=== PATIENT | female | born 1990 | race Two or more races ===

== ENCOUNTER 2017-12-19 23:55 | Observation (INO) | payer MEDICAID, SELFPAY ==
[~2017-12-19] VITALS: Ht 157.5 cm; Wt 90.6 kg
[2017-12-20 00:33] LABS: HCG UR SG 1.009 (1.003-1.030); MICROSCOPIC AUTO
[2017-12-20 00:34] LABS: CULTURE INDICATED? NO
[2017-12-20] MEDS ORDERED: MAALOX/HYOSCYAMINE/LIDOCAINE 45 ML BTL PO ONE (01:00)
[2017-12-20] MEDS ORDERED: MAALOX/HYOSCYAMINE/LIDOCAINE 45 ML BTL ONE (01:09)
[2017-12-20 01:35] LABS: BASOPHILS # (AUTO) 0.04 x10^3/uL (0-0.1); BASOPHILS % (AUTO) 0 % (0-1); EOSINOPHILS # (AUTO) 0.22 x10^3/uL (0-0.4); EOSINOPHILS % (AUTO) 2 % (1-7); LYMPHOCYTES % (AUTO) 30 % (22-44); MD NO; MEAN CORPUSCULAR HEMOGLOBIN 30.8 pg (27.0-34.8); MEAN CORPUSCULAR HGB CONC 33.7 g/dL (32.4-35.8); MEAN CORPUSCULAR VOLUME 91.3 fL (80-100); MEAN PLATELET VOLUME 11.7 fL (7.4-10.4); MONOCYTES # (AUTO) 0.71 x10^3/uL (0.2-0.8); MONOCYTES % (AUTO) 8 % (2-9); NEUTROPHILS # (AUTO) 5.48 x10^3/uL (1.8-6.8); NEUTROPHILS % (AUTO) 60 % (42-75); PLATELET COUNT 250 x10^3/uL (130-400); RED BLOOD COUNT 4.43 x10^6/uL (3.82-5.3); RED CELL DISTRIBUTION WIDTH 13.5 % (9.6-15.2)
[2017-12-20 01:46] LABS: ALANINE AMINOTRANSFERASE 81 U/L (12-78); ALBUMIN 3.5 g/dL (3.4-5.0); ANION GAP 8 mmol/L (5-15); CALCIUM 8.1 mg/dL (8.5-10.1); CHLORIDE 107 mmol/L (98-107); CREATININE 0.74 mg/dL (0.55-1.02)
[2017-12-20 01:50] LABS: ALKALINE PHOSPHATASE 100 U/L (45-117); BILIRUBIN,TOTAL 0.2 mg/dL (0.2-1.0); TOTAL PROTEIN 7.3 g/dL (6.4-8.2)
[2017-12-20] MEDS ORDERED: SODIUM CHLORIDE FLUSH 10ML SYR IVF ONE (02:00)
[2017-12-20] MEDS ORDERED: ONDANSETRON 2MG/ML, 2ML IVPush ONE (02:00)
[2017-12-20] MEDS ORDERED: CEFOTETAN PMX 1GM/50ML 50 ML IV ONE (02:00)
[2017-12-20] MEDS ORDERED: SODIUM CHLORIDE 0.9% 1,000ML IVBOLUS ONE (02:00)
[2017-12-20] MEDS ORDERED: HYDROmorphone 1 MG/ML, 1ML IVPush PRN (02:00)
[2017-12-20] MEDS ORDERED: CEFOTETAN PMX 1GM/50ML 50 ML ONE (02:03)
[2017-12-20] MEDS ORDERED: HYDROmorphone 2 MG/ML, 1ML ONE (02:03)
[2017-12-20] MEDS ORDERED: ONDANSETRON 2MG/ML, 2ML ONE ×2 (02:03→13:39)
[2017-12-20] MEDS ORDERED: morphine SULFATE 10 MG/ML, 1ML IVPush PRN (02:30)
[2017-12-20] MEDS: CEFOTETAN PMX 1GM/50ML 50 ML IVPB SCH ×2 (02:30→14:30)
[2017-12-20] MEDS ORDERED: ONDANSETRON 2MG/ML, 2ML IVPush PRN (02:30)
[2017-12-20 03:30] VITALS: BP 117/79
[2017-12-20] MEDS: D5%-0.45NACL+KCL 20MEQ 1,000 ML IV SCH ×2 (05:01→15:00)
[2017-12-20 08:00] VITALS: BP 104/59
[2017-12-20] MEDS ORDERED: MIDAZOLAM 1 MG/ML, 2ML ONE (12:10)
[2017-12-20] MEDS ORDERED: CEFAZOLIN 1,000 MG ONE ×2 (12:10)
[2017-12-20] MEDS ORDERED: FENTANYL PF 100 MCG/2ML ONE ×3 (12:10→14:31)
[2017-12-20] MEDS ORDERED: PROPOFOL 10 MG/ML, 20ML ONE (12:10)
[2017-12-20] MEDS ORDERED: ROCURONIUM 10 MG/ML,10ML ONE (12:11)
[2017-12-20] MEDS ORDERED: PROMETHAZINE 25 MG/ML, 1ML IV PRN (12:30)
[2017-12-20] MEDS ORDERED: OXYcodone 5 MG/5 ML ORAL.SOL UDC PO PRN (12:30)
[2017-12-20] MEDS ORDERED: SUCCINYLCHOLINE 20 MG/ML, 10ML ONE (13:07)
[2017-12-20] MEDS ORDERED: DEXAMETHASONE 4 MG/ML, 1ML ONE ×2 (13:39)
[2017-12-20] MEDS ORDERED: GLYCOPYRROLATE 0.2MG/1ML, 5ML ONE (13:57)
[2017-12-20] MEDS ORDERED: NEOSTIGMINE 1 MG/ML, 10ML ONE (13:57)
[2017-12-20] MEDS ORDERED: ACETAMINOPHEN 650 MG/20.3 ML UDC PO PRN (14:30)
[2017-12-20] MEDS ORDERED: KETOROLAC 30 MG/1 ML ONE (14:30)
[2017-12-20] MEDS ORDERED: ACETAMINOPHEN 650 MG/20.3 ML UDC ONE (14:30)
[2017-12-20] MEDS ORDERED: OXYcodone 5 MG/5 ML ORAL.SOL UDC ONE (14:31)
[2017-12-20] MEDS ORDERED: KETOROLAC 30 MG/1 ML IVPush STA (14:31)
[2017-12-20] MEDS: FENTANYL PF 100 MCG/2ML IV PRN ×4 (14:36→15:13)
[2017-12-20] MEDS: POTASSIUM CHLORIDE 20 MEQ in D5%-0.45% NACL 1,000 ML IV SCH ×2 (16:24→22:05)
[2017-12-20] MEDS ORDERED: DIPHENHYDRAMINE 50 MG/ML, 1ML IV PRN (16:30)
[2017-12-20] MEDS ORDERED: KETOROLAC 30 MG/1 ML IV PRN (16:30)
[2017-12-20] MEDS ORDERED: DIPHENHYDRAMINE 25 MG CAPSULE PO PRN (16:30)
[2017-12-20] MEDS ORDERED: ONDANSETRON 2MG/ML, 2ML IV PRN (16:30)
[2017-12-20] MEDS ORDERED: morphine SULFATE 10 MG/ML, 1ML IV PRN (16:30)
[2017-12-20] MEDS: OXYcodone/APAP 5/325MG TABLET PO PRN ×2 (18:10→22:03)
[2017-12-20 19:58] VITALS: BP 118/75
[2017-12-21 00:07] VITALS: BP 83/46
[2017-12-21 00:37] VITALS: BP 100/64
[2017-12-21] MEDS: CEFOTETAN PMX 1GM/50ML 50 ML IVPB SCH (03:06)
[2017-12-21] MEDS: OXYcodone/APAP 5/325MG TABLET PO PRN ×2 (03:11→09:06)
[2017-12-21 04:01] VITALS: BP 100/61
[2017-12-21 05:23] LABS: BASOPHILS % (AUTO) 0 % (0-1); EOSINOPHILS % (AUTO) 0 % (1-7); LYMPHOCYTES % (AUTO) 6 % (22-44); MD NO; MEAN CORPUSCULAR HGB CONC 33.8 g/dL (32.4-35.8); MEAN CORPUSCULAR VOLUME 91.5 fL (80-100); MEAN PLATELET VOLUME 11.6 fL (7.4-10.4); MONOCYTES # (AUTO) 0.59 x10^3/uL (0.2-0.8); MONOCYTES % (AUTO) 4 % (2-9); NEUTROPHILS # (AUTO) 11.94 x10^3/uL (1.8-6.8); NEUTROPHILS % (AUTO) 90 % (42-75); PLATELET COUNT 229 x10^3/uL (130-400); RED BLOOD COUNT 4.02 x10^6/uL (3.82-5.3); RED CELL DISTRIBUTION WIDTH 13.4 % (9.6-15.2)
[2017-12-21 05:51] LABS: ALBUMIN 3.2 g/dL (3.4-5.0); ANION GAP 9 mmol/L (5-15); CALCIUM 8.1 mg/dL (8.5-10.1); CHLORIDE 106 mmol/L (98-107); CREATININE 1.02 mg/dL (0.55-1.02)
[2017-12-21] MEDS ORDERED: ENOXAPARIN 40 MG/0.4 ML SQ SCH (06:00)
[2017-12-21 07:15] VITALS: BP 98/62
[2017-12-21] MEDS: POTASSIUM CHLORIDE 20 MEQ in D5%-0.45% NACL 1,000 ML IV SCH (08:40)
[2017-12-21] MEDS ORDERED: OXYC-306 PO ×2 (09:58→10:02)
== END 2017-12-21 10:38 | disposition home or self-care (01) ==
LOC: ED 12-20 01:30 → INTOOBSV 12-20 02:43 → EDIP 12-20 02:43 → 4NOR 12-20 02:45 → DCLOUNGE 12-21 10:25
PROVIDERS: ADMIT Surgery; ATTEND Surgery
DX: K80.00 Calculus of gallbladder with acute cholecystitis without obstruction (principal); R94.5 Abnormal results of liver function studies
CPT/HCPCS: 36415; 47562; 76700; 80048; 80053; 81001; 81025; 82040; 83690; 84703; 85025; 88304; 96365; 96372; 96375; 96376; 99285; C1729; G0378; J0330; J0690; J1100; J1170; J1650; J1885; J2250; J2270; J2405; J2704; J2710; J3010; J3480; J7030; S0074; 96374; J3490

== ENCOUNTER 2018-07-18 20:31 | Emergency (ER) | payer MEDICAID ==
[~2018-07-18] VITALS: Ht 157.5 cm; Wt 81.0 kg
[~2018-07-18 20:31] MED LIST: OXYC-306 PO
[2018-07-18] MEDS ORDERED: PROCHLORPERAZINE 5 MG/ML, 2ML IM ONE (21:30)
[2018-07-18] MEDS ORDERED: DIPHENHYDRAMINE 50 MG/ML, 1ML IM ONE (21:30)
[2018-07-18] MEDS ORDERED: KETOROLAC 30 MG/1 ML IM ONE (21:30)
[2018-07-18] MEDS ORDERED: SUMATRIPTAN 6MG/0.5ML SQ ONE ×2 (21:30→21:36)
[2018-07-18] MEDS ORDERED: KETOROLAC 30 MG/1 ML ONE (21:36)
[2018-07-18] MEDS ORDERED: PROCHLORPERAZINE 5 MG/ML, 2ML ONE (21:36)
[2018-07-18 22:36] VITALS: BP 106/73
== END 2018-07-18 23:52 | disposition home or self-care (01) ==
LOC: ED 23:10
DX: G44.219 Episodic tension-type headache, not intractable (principal); Z90.49 Acquired absence of other specified parts of digestive tract
CPT/HCPCS: 96372; 99284; J0780; J1200; J1885; J3030